=== PATIENT | male | born 1960 | race Caucasian/White ===

== ENCOUNTER → 2016-06-07 | Outpatient (CLI) | payer MEDICARE, MEDICAID ==
[~2016-06-07] MED LIST: DEBROX; DOCU100C; GEMF600T3; PHEN100C4
== END | disposition home or self-care (01) ==
LOC: LAB 09:17
PROVIDERS: ATTEND Podiatrist
DX: I10 Essential (primary) hypertension (principal); R56.9 Unspecified convulsions
CPT/HCPCS: 36415; 80185

== ENCOUNTER → 2016-07-01 | Outpatient (CLI) | payer MEDICARE, MEDICAID | END | disposition home or self-care (01) | LOC: LAB 11:36 | PROVIDERS: ATTEND Internal Medicine Nephrology | DX: Z51.81 Encounter for therapeutic drug level monitoring (principal) | CPT/HCPCS: 36415; 80185 ==

== ENCOUNTER → 2016-08-11 | Outpatient (CLI) | payer MEDICARE, MEDICAID ==
[~2016-08-11] MED LIST changes: +DOCU-15; -DOCU100C
== END | disposition home or self-care (01) ==
LOC: LAB 10:48
PROVIDERS: ATTEND Internal Medicine Nephrology
DX: Z51.81 Encounter for therapeutic drug level monitoring (principal)
CPT/HCPCS: 36415; 80185

== ENCOUNTER → 2016-09-09 | Outpatient (CLI) | payer MEDICARE, MEDICAID ==
[~2016-09-09] MED LIST changes: +CARB-173; -DEBROX
== END | disposition home or self-care (01) ==
LOC: LAB 14:37
PROVIDERS: ATTEND Internal Medicine Nephrology
DX: R56.9 Unspecified convulsions (principal)
CPT/HCPCS: 36415; 80185

== ENCOUNTER → 2016-10-13 | Outpatient (CLI) | payer MEDICARE, MEDICAID ==
[~2016-10-13] MED LIST changes: -CARB-173; +DEBROX
[2016-10-13 09:51] LABS: BASOPHILS % 0.5 % (0.0-2.0); EOSINOPHILS % 1.1 % (0.0-5.0); HEMATOCRIT. 41.1 % (42.0-52.0); HEMOGLOBIN. 13.8 g/dL (14.0-18.0); LYMPHOCYTES % 20.8 % (20.0-50.0); MEAN CORPUSCULAR HEMOGLOBIN 30.5 pg (28.0-32.0); MEAN CORPUSCULAR VOLUME 90.7 fL (80.0-94.0); MEAN PLATELET VOLUME 7.9 fl (7.4-10.4); MONOCYTES % 7.1 % (2.0-8.0); NEUTROPHILS % 70.5 % (40.0-76.0); PLATELET 201 x1000/uL (130-400); RED BLOOD CELL COUNT 4.53 mill/uL (4.7-6.1); RED CELL DISTRIBUTION WIDTH 13.5 % (11.6-14.6)
[2016-10-13 09:58] LABS: CHLORIDE 105 mEq/L (98-107)
[2016-10-13 10:06] LABS: CARBON DIOXIDE 31 mEq/L (21-32); HDL CHOLESTEROL 63 mg/dL (40-59); LDL CHOLESTEROL 118 mg/dL (5-100)
== END | disposition home or self-care (01) ==
LOC: LAB 09:26
PROVIDERS: ATTEND Internal Medicine Nephrology
DX: R56.9 Unspecified convulsions (principal); E78.1 Pure hyperglyceridemia
CPT/HCPCS: 36415; 80053; 80061; 80185; 85025

== ENCOUNTER → 2016-11-12 | Outpatient (CLI) | payer MEDICARE, MEDICAID | END | disposition home or self-care (01) | LOC: LAB 10:34 | PROVIDERS: ATTEND Internal Medicine Nephrology | DX: R56.9 Unspecified convulsions (principal) | CPT/HCPCS: 36415; 80185 ==

== ENCOUNTER → 2016-12-12 | Outpatient (CLI) | payer MEDICARE, MEDICAID ==
[~2016-12-12] MED LIST changes: +CARB-173; -DEBROX
== END | disposition home or self-care (01) ==
LOC: LAB 11:19
PROVIDERS: ATTEND Internal Medicine Nephrology
DX: R56.9 Unspecified convulsions (principal)
CPT/HCPCS: 36415; 80185

== ENCOUNTER → 2017-01-08 | Outpatient (CLI) | payer MEDICARE, MEDICAID | END | disposition home or self-care (01) | LOC: LAB 10:13 | PROVIDERS: ATTEND Internal Medicine Nephrology | DX: E55.9 Vitamin D deficiency, unspecified (principal) | CPT/HCPCS: 36415; 80185; 82306 ==

== ENCOUNTER → 2017-02-02 | Outpatient (CLI) | payer MEDICARE, MEDICAID ==
[2017-02-02 10:28] LABS: BASOPHILS % 0.6 % (0.0-2.0); EOSINOPHILS % 1.7 % (0.0-5.0); HEMATOCRIT. 43.9 % (42.0-52.0); HEMOGLOBIN. 14.8 g/dL (14.0-18.0); LYMPHOCYTES % 23.7 % (20.0-50.0); MEAN CORPUSCULAR HEMOGLOBIN 30.5 pg (28.0-32.0); MEAN CORPUSCULAR VOLUME 90.5 fL (80.0-94.0); MEAN PLATELET VOLUME 8.4 fl (7.4-10.4); MONOCYTES % 7.2 % (2.0-8.0); NEUTROPHILS % 66.8 % (40.0-76.0); PLATELET 203 x1000/uL (130-400); RED BLOOD CELL COUNT 4.85 mill/uL (4.7-6.1); RED CELL DISTRIBUTION WIDTH 13.5 % (11.6-14.6)
== END | disposition home or self-care (01) ==
LOC: LAB 09:54
PROVIDERS: ATTEND Internal Medicine Nephrology
DX: R56.9 Unspecified convulsions (principal)
CPT/HCPCS: 36415; 80185; 85025

== ENCOUNTER → 2017-03-10 | Outpatient (CLI) | payer MEDICARE, MEDICAID | END | disposition home or self-care (01) | LOC: LAB 10:07 | PROVIDERS: ATTEND Internal Medicine Nephrology | DX: Z51.81 Encounter for therapeutic drug level monitoring (principal) | CPT/HCPCS: 36415; 80185 ==

== ENCOUNTER → 2017-04-03 | Outpatient (CLI) | payer MEDICARE, MEDICAID | END | disposition home or self-care (01) | LOC: LAB 10:22 | PROVIDERS: ATTEND Internal Medicine Nephrology | DX: R56.9 Unspecified convulsions (principal) | CPT/HCPCS: 36415; 80185 ==

== ENCOUNTER → 2017-05-01 | Outpatient (CLI) | payer MEDICARE, MEDICAID | END | disposition home or self-care (01) | LOC: LAB 10:32 | PROVIDERS: ATTEND Internal Medicine Nephrology | DX: R56.9 Unspecified convulsions (principal) | CPT/HCPCS: 36415; 80185 ==

== ENCOUNTER → 2017-05-29 | Outpatient (CLI) | payer MEDICARE, MEDICAID ==
[2017-05-29 11:39] LABS: BASOPHILS % 0.4 % (0.0-2.0); EOSINOPHILS % 0.3 % (0.0-5.0); HEMATOCRIT. 42.1 % (42.0-52.0); HEMOGLOBIN. 14.1 g/dL (14.0-18.0); LYMPHOCYTES % 26.9 % (20.0-50.0); MEAN CORPUSCULAR HEMOGLOBIN 30.1 pg (28.0-32.0); MEAN CORPUSCULAR VOLUME 89.6 fL (80.0-94.0); MEAN PLATELET VOLUME 8.8 fl (7.4-10.4); MONOCYTES % 9.2 % (2.0-8.0); NEUTROPHILS % 63.2 % (40.0-76.0); PLATELET 160 x1000/uL (130-400); RED BLOOD CELL COUNT 4.69 mill/uL (4.7-6.1); RED CELL DISTRIBUTION WIDTH 13.2 % (11.6-14.6)
== END | disposition home or self-care (01) ==
LOC: LAB 11:07
PROVIDERS: ATTEND Internal Medicine Nephrology
DX: E78.00 Pure hypercholesterolemia, unspecified (principal)
CPT/HCPCS: 36415; 80061; 82306; 85025

== ENCOUNTER → 2017-07-07 | Outpatient (CLI) | payer MEDICARE, MEDICAID ==
[2017-07-07 10:35] LABS: BASOPHILS % 0.5 % (0.0-2.0); EOSINOPHILS % 0.5 % (0.0-5.0); HEMATOCRIT. 42.4 % (42.0-52.0); HEMOGLOBIN. 14.4 g/dL (14.0-18.0); LYMPHOCYTES % 21.2 % (20.0-50.0); MEAN CORPUSCULAR HEMOGLOBIN 31.1 pg (28.0-32.0); MEAN CORPUSCULAR VOLUME 91.7 fL (80.0-94.0); MEAN PLATELET VOLUME 8.5 fl (7.4-10.4); MONOCYTES % 6.8 % (2.0-8.0); PLATELET 206 x1000/uL (130-400); RED BLOOD CELL COUNT 4.63 mill/uL (4.7-6.1); RED CELL DISTRIBUTION WIDTH 13.7 % (11.6-14.6)
[2017-07-07 10:47] LABS: CHLORIDE 106 mEq/L (98-107)
== END | disposition home or self-care (01) ==
LOC: LAB 09:54
PROVIDERS: ATTEND Internal Medicine Nephrology
DX: G40.909 Epilepsy, unspecified, not intractable, without status epilepticus (principal); I10 Essential (primary) hypertension; E78.00 Pure hypercholesterolemia, unspecified; E78.5 Hyperlipidemia, unspecified
CPT/HCPCS: 36415; 80048; 80185; 85025

== ENCOUNTER → 2017-09-08 | Outpatient (CLI) | payer MEDICARE, MEDICAID | END | disposition home or self-care (01) | LOC: LAB 10:30 | PROVIDERS: ATTEND Internal Medicine Nephrology | DX: R56.9 Unspecified convulsions (principal); I10 Essential (primary) hypertension; E78.00 Pure hypercholesterolemia, unspecified; E78.5 Hyperlipidemia, unspecified | CPT/HCPCS: 36415; 80185 ==

== ENCOUNTER → 2017-11-03 | Outpatient (CLI) | payer MEDICARE, MEDICAID ==
[~2017-11-03] MED LIST changes: -GEMF600T3; +GEMF600T4
[2017-11-03 10:51] LABS: BASOPHILS % 0.4 % (0.0-2.0); EOSINOPHILS % 0.7 % (0.0-5.0); HEMATOCRIT. 43.5 % (42.0-52.0); HEMOGLOBIN. 14.8 g/dL (14.0-18.0); LYMPHOCYTES % 23.9 % (20.0-50.0); MEAN CORPUSCULAR HEMOGLOBIN 31.1 pg (28.0-32.0); MEAN CORPUSCULAR VOLUME 91.2 fL (80.0-94.0); MEAN PLATELET VOLUME 8.2 fl (7.4-10.4); MONOCYTES % 6.5 % (2.0-8.0); NEUTROPHILS % 68.5 % (40.0-76.0); PLATELET 200 x1000/uL (130-400); RED BLOOD CELL COUNT 4.77 mill/uL (4.7-6.1); RED CELL DISTRIBUTION WIDTH 13.3 % (11.6-14.6)
== END | disposition home or self-care (01) ==
LOC: LAB 10:17
PROVIDERS: ATTEND Internal Medicine Nephrology
DX: R56.9 Unspecified convulsions (principal); Z79.899 Other long term (current) drug therapy
CPT/HCPCS: 36415; 80061; 80185; 82306; 85025

== ENCOUNTER → 2018-03-30 | Outpatient (CLI) | payer MEDICARE, MEDICAID ==
[2018-03-30 09:50] LABS: BASOPHILS % 0.6 % (0.0-2.0); EOSINOPHILS % 0.6 % (0.0-5.0); HEMATOCRIT. 45.7 % (42.0-52.0); HEMOGLOBIN. 15.1 g/dL (14.0-18.0); LYMPHOCYTES % 19.4 % (20.0-50.0); MEAN CORPUSCULAR HEMOGLOBIN 30.6 pg (28.0-32.0); MEAN CORPUSCULAR VOLUME 92.7 fL (80.0-94.0); MEAN PLATELET VOLUME 8.8 fl (7.4-10.4); MONOCYTES % 6.5 % (2.0-8.0); NEUTROPHILS % 72.9 % (40.0-76.0); PLATELET 191 x1000/uL (130-400); RED BLOOD CELL COUNT 4.93 mill/uL (4.7-6.1); RED CELL DISTRIBUTION WIDTH 13.7 % (11.6-14.6)
[2018-03-30 10:08] LABS: CHLORIDE 105 mEq/L (98-107)
== END | disposition home or self-care (01) ==
LOC: LAB 09:04
PROVIDERS: ATTEND Internal Medicine Nephrology
DX: I10 Essential (primary) hypertension (principal); R56.9 Unspecified convulsions
CPT/HCPCS: 36415; 80048; 80185

== ENCOUNTER → 2018-05-03 | Outpatient (CLI) | payer MEDICARE, MEDICAID | END | disposition home or self-care (01) | LOC: LAB 11:08 | PROVIDERS: ATTEND Internal Medicine Nephrology | DX: R56.9 Unspecified convulsions (principal) | CPT/HCPCS: 36415; 80185 ==

== ENCOUNTER → 2018-05-31 | Outpatient (CLI) | payer MEDICARE, MEDICAID ==
[2018-05-31 11:35] LABS: CHLORIDE 106 mEq/L (98-107)
[2018-05-31 11:41] LABS: LDL CHOLESTEROL 135 mg/dL (5-100)
[2018-05-31 11:43] LABS: HDL CHOLESTEROL 70 mg/dL (40-59)
== END | disposition home or self-care (01) ==
LOC: LAB CL OP 10:46
PROVIDERS: ATTEND Internal Medicine Nephrology
DX: E78.5 Hyperlipidemia, unspecified (principal); R56.9 Unspecified convulsions; Z79.899 Other long term (current) drug therapy
CPT/HCPCS: 36415; 80048; 80061; 82306

== ENCOUNTER → 2018-07-01 | Outpatient (CLI) | payer MEDICARE, MEDICAID | END | disposition home or self-care (01) | LOC: LAB 12:11 | PROVIDERS: ATTEND Internal Medicine Nephrology | DX: R56.9 Unspecified convulsions (principal) | CPT/HCPCS: 36415; 80185 ==

== ENCOUNTER → 2019-04-20 | Outpatient (CLI) | payer MEDICARE, MEDICAID ==
[~2019-04-20] MED LIST changes: -GEMF600T4; +GEMF600T5
== END | disposition home or self-care (01) ==
LOC: CT 09:57
PROVIDERS: ATTEND Neurological Surgery
DX: G93.89 Other specified disorders of brain (principal); Z98.2 Presence of cerebrospinal fluid drainage device

== ENCOUNTER 2021-02-21 09:10 | Inpatient (IN) | payer MEDICARE, MEDICAID ==
[~2021-02-21] VITALS: Ht 172.7 cm; Wt 69.9 kg
[~2021-02-21 09:10] MED LIST changes: -GEMF600T5; +GEMF600T90
[2021-02-21 11:23] LABS: BASOPHILS % 0.2 % (0.0-2.0); EOSINOPHILS % 0.1 % (0.0-5.0); HEMATOCRIT. 44.2 % (42.0-52.0); HEMOGLOBIN. 14.4 g/dL (14.0-18.0); LYMPHOCYTES % 15.1 % (20.0-50.0); MEAN CORPUSCULAR VOLUME 91.9 fL (80.0-94.0); MEAN PLATELET VOLUME 8.9 fl (7.4-10.4); MONOCYTES % 6.5 % (2.0-8.0); NEUTROPHILS % 78.1 % (40.0-76.0); PLATELET 261 x1000/uL (130-400); RED BLOOD CELL COUNT 4.81 mill/uL (4.7-6.1); RED CELL DISTRIBUTION WIDTH 13.1 % (11.6-14.6)
[2021-02-21 11:35] LABS: CHLORIDE 101 mEq/L (98-107)
[2021-02-21 11:37] LABS: PARTIAL THROMBOPLASTIN TIME 28.1 sec (23.4-31.0); PROTHROMBIN TIME 10.9 sec (9.6-11.0)
[2021-02-21 11:41] LABS: ETHANOL BLOOD < 10 mg/dL
[2021-02-21 11:55] LABS: CLARITY URINE CLEAR (CLEAR); COLOR URINE ORANGE (YELLOW); KETONES URINE NEGATIVE (NEGATIVE); LEUKOCYTE ESTERASE URINE NEGATIVE (NEGATIVE); NITRITE URINE NEGATIVE (NEGATIVE); OCCULT BLOOD URINE NEGATIVE (NEGATIVE); PH URINE 7.5 (4.5-8.0); PROTEIN URINE NEGATIVE (NEGATIVE); SPECIFIC GRAVITY URINE 1.008 (1.005-1.030); UROBILINOGEN URINE 0.2 E.U./dL (0.2-1.0)
[2021-02-21 12:19] LABS: *AMPHETAMINES SCREEN URINE NEGATIVE (NEGATIVE); *BARBITURATES SCREEN URINE NEGATIVE (NEGATIVE); *BENZODIAZEPINES SCREEN URINE NEGATIVE (NEGATIVE); *COCAINE SCREEN URINE NEGATIVE (NEGATIVE); METHADONE URINE SCREEN NEGATIVE (NEGATIVE); OPIATES URINE SCREEN NEGATIVE (NEGATIVE)
[2021-02-21 12:20] LABS: CANNABINOID URINE SCREEN NEGATIVE (NEGATIVE); PHENCYCLIDINE URINE SCREEN NEGATIVE (NEGATIVE)
[2021-02-21 16:00] VITALS: BP 135/94
[2021-02-21] MEDS ORDERED: IPRATROPIUM/ALBUTEROL 0.5-3(2.5)MG/3ML NEB NEB PRN (16:00)
[2021-02-21] MEDS ORDERED: DOCUSATE SODIUM 100MG CAPSULE PO PRN (16:00)
[2021-02-21] MEDS ORDERED: ACETAMINOPHEN 325MG TABLET PO PRN ×2 (16:00)
[2021-02-21] MEDS ORDERED: CLONIDINE 0.1MG TABLET PO PRN (16:00)
[2021-02-21] MEDS ORDERED: GUAIFENESIN 200MG/10ML SUGAR FREE UDC PO PRN (16:00)
[2021-02-21] MEDS ORDERED: ZOLPIDEM TARTRATE 5MG TABLET PO PRN (16:00)
[2021-02-21] MEDS ORDERED: KETOROLAC 15MG/ML VIAL IV PRN (16:00)
[2021-02-21] MEDS ORDERED: MAGNESIUM/ALUMINUM HYDROXIDE/SIMETHICONE 30ML UDC PO PRN (16:00)
[2021-02-21] MEDS ORDERED: ONDANSETRON HCL 4MG/2ML INJ IV PRN (16:00)
[2021-02-21] MEDS ORDERED: NITROGLYCERIN 0.4MG TABLET SL SL PRN (16:00)
[2021-02-21 16:33] LABS: TOTAL IRON BINDING CAPACITY 304 ug/dL (250-450)
[2021-02-21 16:47] LABS: FOLIC ACID (FOLATE) SERUM 11.7 ng/mL (>5.38)
[2021-02-21] MEDS ORDERED: CHOL400D7 PO (17:18)
[2021-02-21] MEDS ORDERED: PHEN100C12 MT (17:18)
[2021-02-21] MEDS ORDERED: EZET10TA13 MT (17:22)
[2021-02-21] MEDS ORDERED: ATOR10TA69 MT (17:22)
[2021-02-21] MEDS ORDERED: OMEG-119 PO (17:22)
[2021-02-21 17:30] VITALS: BP 135/94
[2021-02-21] MEDS: ENOXAPARIN 40MG/0.4ML SYR SUBCUT SCH (18:42)
[2021-02-21 20:00] VITALS: BP 132/78
[2021-02-21] MEDS: PHENYTOIN SODIUM EXTENDED 100MG CAPSULE PO SCH (21:21)
[2021-02-21] MEDS: FAMOTIDINE 20MG TABLET PO SCH (21:22)
[2021-02-21] MEDS: METOPROLOL TARTRATE 25MG TABLET PO SCH (21:22)
[2021-02-22] VITALS: BP 147/81
[2021-02-22 00:10] LABS: CREATINE KINASE 91 IU/L (39-308)
[2021-02-22 00:11] LABS: CREATINE KINASE MB FRACTION < 1.0 ng/mL (0.5-3.6)
[2021-02-22 04:00] VITALS: BP 128/75
[2021-02-22 08:00] VITALS: BP 141/79
[2021-02-22] MEDS: METOPROLOL TARTRATE 25MG TABLET PO SCH ×2 (08:58→21:50)
[2021-02-22] MEDS: FAMOTIDINE 20MG TABLET PO SCH ×2 (08:58→18:16)
[2021-02-22] MEDS: AMLODIPINE 5MG TABLET PO SCH (08:59)
[2021-02-22 09:14] LABS: BASOPHILS % 0.5 % (0.0-2.0); EOSINOPHILS % 0.5 % (0.0-5.0); HEMATOCRIT. 42.1 % (42.0-52.0); LYMPHOCYTES % 18.8 % (20.0-50.0); MEAN CORPUSCULAR HEMOGLOBIN 30.6 pg (28.0-32.0); MEAN CORPUSCULAR VOLUME 92.1 fL (80.0-94.0); MEAN PLATELET VOLUME 8.8 fl (7.4-10.4); MONOCYTES % 7.4 % (2.0-8.0); NEUTROPHILS % 72.8 % (40.0-76.0); PLATELET 244 x1000/uL (130-400); RED BLOOD CELL COUNT 4.57 mill/uL (4.7-6.1)
[2021-02-22 09:37] LABS: CREATINE KINASE 80 IU/L (39-308)
[2021-02-22 09:38] LABS: CREATINE KINASE MB FRACTION < 1.0 ng/mL (0.5-3.6)
[2021-02-22 09:46] LABS: CHLORIDE 103 mEq/L (98-107)
[2021-02-22 09:58] LABS: PHOSPHORUS 2.8 mg/dL (2.5-4.9)
[2021-02-22 12:00] VITALS: BP 131/75
[2021-02-22] MEDS ORDERED: VANCOMYCIN 1500MG in DEXTROSE 5% WATER 250ML IV NR (13:00)
[2021-02-22 16:00] VITALS: BP 138/64
[2021-02-22] MEDS: ENOXAPARIN 40MG/0.4ML SYR SUBCUT SCH (18:19)
[2021-02-22 20:00] VITALS: BP 141/77
[2021-02-22] MEDS ORDERED: VANCOMYCIN 1 G PREMIX 200 ML IV SCH (21:00)
[2021-02-22] MEDS: VANCOMYCIN 750 MG PREMIX 150 ML IV SCH (21:51)
[2021-02-22] MEDS: PHENYTOIN SODIUM EXTENDED 100MG CAPSULE PO SCH (21:51)
[2021-02-23] VITALS: BP 160/76
[2021-02-23 04:00] VITALS: BP 125/69
[2021-02-23] MEDS: VANCOMYCIN 750 MG PREMIX 150 ML IV SCH ×3 (05:22→20:34)
[2021-02-23 08:00] VITALS: BP 140/74
[2021-02-23] MEDS: AMLODIPINE 5MG TABLET PO SCH (09:21)
[2021-02-23] MEDS: METOPROLOL TARTRATE 25MG TABLET PO SCH ×2 (09:21→20:36)
[2021-02-23] MEDS: FAMOTIDINE 20MG TABLET PO SCH ×2 (09:21→20:35)
[2021-02-23 12:00] VITALS: BP 131/76
[2021-02-23 16:00] VITALS: BP 135/75
[2021-02-23] MEDS: ENOXAPARIN 40MG/0.4ML SYR SUBCUT SCH (17:22)
[2021-02-23 20:00] VITALS: BP 135/74
[2021-02-23] MEDS: PHENYTOIN SODIUM EXTENDED 100MG CAPSULE PO SCH (20:35)
[2021-02-24] VITALS: BP 131/73
[2021-02-24 04:00] VITALS: BP 123/69
[2021-02-24 08:00] VITALS: BP 129/73
[2021-02-24] MEDS: METOPROLOL TARTRATE 25MG TABLET PO SCH ×2 (10:07→21:03)
[2021-02-24] MEDS: FAMOTIDINE 20MG TABLET PO SCH ×2 (10:07→21:02)
[2021-02-24] MEDS: AMLODIPINE 5MG TABLET PO SCH (10:07)
[2021-02-24] MEDS: VANCOMYCIN 750 MG PREMIX 150 ML IV SCH ×2 (10:08→21:03)
[2021-02-24 12:00] VITALS: BP 121/70
[2021-02-24 16:00] VITALS: BP 140/72
[2021-02-24] MEDS: ENOXAPARIN 40MG/0.4ML SYR SUBCUT SCH (16:25)
[2021-02-24 20:00] VITALS: BP 136/77
[2021-02-24] MEDS: PHENYTOIN SODIUM EXTENDED 100MG CAPSULE PO SCH (21:03)
[2021-02-25] VITALS: BP 126/72
[2021-02-25 03:58] VITALS: BP 128/76
[2021-02-25 07:37] LABS: CHLORIDE 100 mEq/L (98-107)
[2021-02-25 08:00] VITALS: BP 134/75
[2021-02-25] MEDS: METOPROLOL TARTRATE 25MG TABLET PO SCH (08:23)
[2021-02-25] MEDS: FAMOTIDINE 20MG TABLET PO SCH (08:23)
[2021-02-25] MEDS: VANCOMYCIN 750 MG PREMIX 150 ML IV SCH (08:23)
[2021-02-25] MEDS: AMLODIPINE 5MG TABLET PO SCH (08:24)
[2021-02-25 12:00] VITALS: BP 126/67
[2021-02-25 14:01] VITALS: BP 129/67
[2021-02-25] MEDS ORDERED: VANCOMYCIN 1 G PREMIX 200 ML IV SCH (18:00)
== END 2021-02-25 15:11 | disposition home health service (06) | DRG 92 ==
LOC: ER 09:10 → 6EST 10:47 → EDBEDREQTM 10:49 → EDBEDREQ 10:49 → ENRESERV 15:02
PROVIDERS: ADMIT Internal Medicine; ATTEND Internal Medicine
DX: G92.8 Other toxic encephalopathy (principal); G91.9 Hydrocephalus, unspecified; Z20.822 Contact with and (suspected) exposure to COVID-19; E78.00 Pure hypercholesterolemia, unspecified; G40.909 Epilepsy, unspecified, not intractable, without status epilepticus; I10 Essential (primary) hypertension; Z88.5 Allergy status to narcotic agent; Z88.0 Allergy status to penicillin; Z98.2 Presence of cerebrospinal fluid drainage device; Z86.19 Personal history of other infectious and parasitic diseases
CPT/HCPCS: 36415; 70551; 71045; 80048; 80053; 80076; 80185; 80202; 80305; 80307; 80320; 80329; 81003; 82140; 82550; 82553; 82607; 82746; 82962; 83540; 83550; 83605; 83735; 83930; 84100; 84443; 84484; 85025; 86592; 87426; 93005; 97161; 97165; 99285; J1650; J3370; J7060; G0480

== ENCOUNTER → 2022-05-13 | Outpatient (CLI) | payer MEDICARE, MEDICAID ==
[~2022-05-13] MED LIST changes: +ATOR10TA69 MT; +CHOL400D7 PO; +EZET10TA13 MT; +OMEG-119 PO; +PHEN100C12 MT; -PHEN100C4
== END | disposition home or self-care (01) ==
LOC: CT 08:21
PROVIDERS: ATTEND Neurological Surgery
DX: G93.89 Other specified disorders of brain (principal); R51.9 Headache, unspecified

== ENCOUNTER → 2023-01-05 | Outpatient (CLI) | payer MEDICARE, MEDICAID ==
[~2023-01-05] MED LIST changes: -EZET10TA13 MT; +EZET10TA81 MT
[2023-01-05 11:31] LABS: BASOPHILS % 0.6 % (0.0-2.0); EOSINOPHILS % 0.7 % (0.0-5.0); HEMOGLOBIN. 13.9 g/dL (14.0-18.0); LYMPHOCYTES % 25.3 % (20.0-50.0); MEAN CORPUSCULAR HEMOGLOBIN 31.1 pg (28.0-32.0); MEAN CORPUSCULAR VOLUME 94.1 fL (80.0-94.0); MEAN PLATELET VOLUME 8.5 fl (7.4-10.4); MONOCYTES % 7.9 % (2.0-8.0); NEUTROPHILS % 65.5 % (40.0-76.0); PLATELET 214 x1000/uL (130-400); RED BLOOD CELL COUNT 4.47 mill/uL (4.7-6.1); RED CELL DISTRIBUTION WIDTH 13.4 % (11.6-14.6); WHITE BLOOD COUNT 6.3 x1000/uL (4.5-11.0)
[2023-01-05 11:47] LABS: CALCIUM 9.3 mg/dL (8.5-10.1); CARBON DIOXIDE 31 mEq/L (21-32); CHLORIDE 107 mEq/L (98-107); INDEX HEMOLYSI 1 (1-3); INDEX ICTERIC 1 (1-4); INDEX LIPEMIC 1 (1-3); POTASSIUM 4.8 mEq/L (3.5-5.1); SODIUM 140 mEq/L (136-145); UREA NITROGEN BLOOD 13 mg/dL (7-21)
[2023-01-05 11:52] LABS: CREATININE 0.7 mg/dL (0.6-1.3); GLUCOSE 100 mg/dL (70-105)
== END | disposition home or self-care (01) ==
LOC: LAB 11:03
PROVIDERS: ATTEND Internal Medicine Nephrology
DX: I10 Essential (primary) hypertension (principal); R49.22 Hyponasality; E87.1 Hypo-osmolality and hyponatremia
CPT/HCPCS: 36415; 80048; 84153; 85025; G0103

== ENCOUNTER → 2023-02-02 | Outpatient (CLI) | payer MEDICARE, MEDICAID ==
[2023-02-02 12:01] LABS: CHLORIDE 103 mEq/L (98-107); INDEX HEMOLYSI 1 (1-3); INDEX ICTERIC 1 (1-4); INDEX LIPEMIC 1 (1-3); POTASSIUM 4.8 mEq/L (3.5-5.1); SODIUM 137 mEq/L (136-145)
[2023-02-02 12:07] LABS: CALCIUM 9.1 mg/dL (8.5-10.1); CARBON DIOXIDE 31 mEq/L (21-32); CREATININE 0.7 mg/dL (0.6-1.3); GLUCOSE 86 mg/dL (70-105); PHENYTOIN 10.6 ug/mL (10-20); UREA NITROGEN BLOOD 11 mg/dL (7-21)
== END | disposition home or self-care (01) ==
LOC: LAB 10:45
PROVIDERS: ATTEND Internal Medicine Nephrology
DX: I10 Essential (primary) hypertension (principal)
CPT/HCPCS: 36415; 80048; 80185

== ENCOUNTER → 2024-03-08 | Outpatient (CLI) | payer MEDICARE, MEDICAID ==
[~2024-03-08] MED LIST changes: -CARB-173; +DEBROX
== END | disposition home or self-care (01) ==
LOC: CT 08:52
PROVIDERS: ATTEND Neurological Surgery
DX: R90.82 White matter disease, unspecified (principal); G31.89 Other specified degenerative diseases of nervous system; R51.9 Headache, unspecified

== ENCOUNTER → 2025-03-14 | Outpatient (CLI) | payer MEDICARE, MEDICAID ==
[~2025-03-14] MED LIST changes: +CARB15DR20; -DEBROX
== END | disposition home or self-care (01) ==
LOC: CT 08:55
PROVIDERS: ATTEND Neurological Surgery
DX: G31.89 Other specified degenerative diseases of nervous system (principal); I67.82 Cerebral ischemia; I51.7 Cardiomegaly; Z98.2 Presence of cerebrospinal fluid drainage device